=== PATIENT | female | born 1950 | race Caucasian/White ===

== ENCOUNTER 2019-06-30 07:04 | Day surgery (SDC) | payer MEDICARE ==
[2019-06-30] MEDS ORDERED: Midazolam 1 MG/ML 2 ML SDV ONE (07:27)
[2019-06-30] MEDS ORDERED: Propofol 200 MG/20 ML SDV ONE ×2 (07:27→08:00)
[2019-06-30] MEDS ORDERED: fentaNYL 100 MCG/2 ML SDV ONE (07:27)
[2019-06-30] MEDS ORDERED: Sodium Chloride 0.9% 1,000 ML IV SCH (07:45)
--- NOTE | 2019-06-30 10:15 | OR ---
DATE OF PROCEDURE: SURGEON: Juan Antonio Wagner MD PROCEDURES: 1. Esophagogastroduodenoscopy. 2. Colonoscopy. FINDINGS: 1. Hiatal hernia approximately 3 cm in size. 2. Inflammation of the GE junction with a slight thickening on lateral aspect (biopsied x6 using cold biopsy forceps and biopsied x4 in all other quadrants). 3. Polyp at 20 cm, completely removed using hot snare wire device. 4. Ascending colon polyp #1, approximately 1 cm, completely removed using hot snare wire device. 5. Ascending colon polyp #2, approximately 1 cm, completely removed using hot snare wire device. 6. Ascending colon polyp #3, approximately 8 mm, completely removed using hot snare wire device. 7. Ascending colon polyp #4, approximately 5 mm, completely removed using hot snare wire device. 8. Ascending colon polyp #5, approximately 1 cm, completely removed using hot snare wire device. 9. Descending colon polyp, approximately 1 cm, completely removed using hot snare wire device. 10.Sigmoid colon polyp, approximately 1.3 cm, completely removed using hot snare wire device. 11.Diverticulosis, mild, limited to sigmoid colon only. RISKS: Risks, benefits, alternatives, and limitations including, but not limited to infection, bleeding, and perforation were explained to the patient who wished to proceed. PROCEDURE IN DETAIL: The patient was placed in left lateral decubitus position. The EGD scope was introduced and advanced atraumatically into the second part of the duodenum. No evidence of duodenitis or ulceration. Within the stomach itself, there was no evidence of gastritis. The GE junction on one aspect showed a small more prominent area. This was biopsied as described above multiple times. The other quadrants were also biopsied. The patient did have a hiatal hernia approximately 3 cm in size. The remaining esophagus was normal. Digital rectal exam was performed without abnormality. The scope was introduced and advanced. The multiple polyps were identified throughout the procedure. Of note, the ascending colon polyps were numbered in a retrograde fashion. All of these polyps were identified and completely removed as described. Minimal bleeding was noted. The scope was eventually reached to the ileocecal valve. A photo was taken of this. Scope was brought back to the remainder of the colon. Diverticulosis would be described as mild, limited to the sigmoid colon without evidence of diverticulitis or bleeding. No abnormalities on retroflexion. The etiology of obviously the multiple polyps. Juan Antonio Wagner MD /[id number]
== END 2019-06-30 10:14 | disposition home or self-care (01) ==
LOC: JP.SDS 07:04
PROVIDERS: ATTEND Surgery
DX: C16.0 Malignant neoplasm of cardia (principal); D12.2 Benign neoplasm of ascending colon; D12.4 Benign neoplasm of descending colon; K44.9 Diaphragmatic hernia without obstruction or gangrene; K57.30 Diverticulosis of large intestine without perforation or abscess without bleeding; F17.200 Nicotine dependence, unspecified, uncomplicated
CPT/HCPCS: 43239; 45385; J2250; J2704; J3010; J7030; 88305; 88341; 88342

== ENCOUNTER 2019-09-09 20:49 | Emergency (ER) | payer MEDICARE, OTHER ==
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
[2019-09-09] MEDS ORDERED: Bupivacaine 0.5% 10 ML SDV INJECT ONE (21:51)
--- NOTE | 2019-09-11 10:57 | CR ---
FOOT RIGHT 3 views CLINICAL HISTORY:Injury FINDINGS:There is some soft tissue swelling of the second toe. There is no dislocation. No fracture line is seen. Impression: Soft tissue swelling second toe. No fracture seen , Toes Second Digit Lt T1 CLINICAL HISTORY: Dislocation FINDINGS: There is a dorsal dislocation of the second to the middle phalanx. There is a tiny ossific density in the medial periarticular region which is likely avulsion. IMPRESSION: Dislocation at the second PIP joint with probable tiny avulsion off the medial periarticular bone
--- NOTE | 2019-09-11 10:58 | CR ---
Tibia Fibula Rt CLINICAL HISTORY: 3 FINDINGS: Two views show no evidence of fracture or bone destruction. Impression: Negative
--- NOTE | 2019-09-11 10:59 | CR ---
Toes Second Digit Lt T1 CLINICAL HISTORY: Dislocation, reduction FINDINGS: There is been reduction of the second PIP dislocation. There is a tiny periarticular ossification felt to represent a small articular margin or avulsion fracture. IMPRESSION: Reduction of dislocation Small chip or avulsion fracture off the medial periarticular region
== END 2019-09-09 23:14 | disposition home or self-care (01) ==
LOC: JP.ED 20:49
DX: S93.115A Dislocation of interphalangeal joint of left lesser toe(s), initial encounter (principal); S90.31XA Contusion of right foot, initial encounter; S80.212A Abrasion, left knee, initial encounter; S80.211A Abrasion, right knee, initial encounter; S00.81XA Abrasion of other part of head, initial encounter; M19.90 Unspecified osteoarthritis, unspecified site; K21.9 Gastro-esophageal reflux disease without esophagitis; Z79.82 Long term (current) use of aspirin; Z79.02 Long term (current) use of antithrombotics/antiplatelets; Z79.899 Other long term (current) drug therapy; Z88.8 Allergy status to other drugs, medicaments and biological substances; V59.9XXA Occupant (driver) (passenger) of pick-up truck or van injured in unspecified traffic accident, initial encounter
CPT/HCPCS: 28515; 28660; 64450; 73590; 73630; 73660; 99282; 99283; J3490

== ENCOUNTER 2020-01-17 11:44 | Emergency (ER) | payer MEDICARE ==
[2020-01-17] MEDS ORDERED: Ketorolac 30 MG/ML SDV IVPUSH ONE (13:20)
[2020-01-17] MEDS ORDERED: fentaNYL 100 MCG/2 ML SDV IVPUSH ONE (13:20)
[2020-01-17] MEDS ORDERED: cefTRIAXone 1 GM in Sodium Chloride 0.9% 50 ML IV ONE ×2 (13:21→14:00)
--- NOTE | 2020-01-17 14:22 | EDM.PDOC ---
ED HPI GENERAL MEDICAL PROBLEM - General Chief Complaint: Flank Pain Stated Complaint: RIGHT SIDE PAIN Time Seen by Provider: 01/17/20 12:30 Source of Information: Reports: Patient, Family History Limitations: Reports: No Limitations - History of Present Illness INITIAL COMMENTS - FREE TEXT/NARRATIVE: 69-year-old female with right abdominal and right flank pain for the past sev eral days. She was diagnosed with a UTI and renal stones 1 month ago and a stent was placed. She was supposed to have a follow-up visit, but when she called for her appointment she was told the urologist was gone for 2 weeks. That made her upset so she switched clinics, and is now going to [facility] in [place] for stent removal next week. She has been on 3 courses of Cipro for UTI prevention, finished her antibiotic 3 days ago. She had a preop exam 2 days ago. This morning she is having more pain and nausea that she usually has although no fever or chills. She arrived to the emergency room fairly uncomfortable. This pain has been a recurring waxing and waning problem for her over the past 4 weeks. Onset: Gradual Duration: Day(s): (Worse the last 3 days) Location: Reports: Abdomen (Right abdomen) Associated Symptoms: Reports: Loss of Appetite, Malaise, Other (Nausea but no vomiting). Denies: Fever/Chills, Headaches, Shortness of Breath Right Flank Pain Score (Numeric/FACES): 8 - Related Data Allergies Allergy/AdvReac Type Severity Reaction Status Date / Time atorvastatin Allergy Rash Verified 09/09/19 21:09 cyclobenzaprine Allergy Other Verified 09/09/19 21:09 donepezil Allergy Other Verified 09/09/19 21:09 hydroxychloroquine Allergy Other Verified 09/09/19 21:09 [From Plaquenil] methotrexate AdvReac Leg Cramps Verified 09/09/19 21:09 Home Meds: Home Meds Aspirin [Halfprin] 81 mg PO DAILY 11/01/18 [History] Clopidogrel [Plavix] 75 mg PO DAILY 11/01/18 [History] Ezetimibe [Zetia] 10 mg PO DAILY 11/01/18 [History] Omeprazole 40 mg PO BID 11/01/18 [History] Sertraline [Zoloft] 150 mg PO DAILY 11/01/18 [History] predniSONE [Prednisone] 10 mg PO DAILY 11/01/18 [History] Oxybutynin Chloride 5 mg PO DAILY 06/21/19 [History] Sucralfate [Carafate] 1 gm PO QID 06/21/19 [History] Past Medical History HEENT History: Reports: Impaired Vision Cardiovascular History: Reports: Other (See Below) Other Cardiovascular History: peripheral artery disease Gastrointestinal History: Reports: GERD Genitourinary History: Reports: UTI, Recurrent [employer] History: Reports: Musculoskeletal History: Reports: Arthritis, Fibromyalgia, Other (See Below) Other Musculoskeletal History: osteopenia Neurological History: Reports: Other (See Below) Other Neuro History: dementia Oncologic (Cancer) History: Reports: Esophageal, Liver, Other (See Below) 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 - Infectious Disease History Infectious Disease History: Reports: Chicken Pox, Measles, Mumps - Past Surgical History HEENT Surgical History: Reports: Tonsillectomy Cardiovascular Surgical History: Reports: None GI Surgical History: Reports: None Neurological Surgical History: Reports: None Musculoskeletal Surgical History: Reports: None Oncologic Surgical History: Reports: Other (See Below) Other Oncologic Surgeries/Procedures: Liver biopsy Social & Family History - Tobacco Use Tobacco Use Status *Q: Current Every Day Tobacco User Years of Tobacco use: 50 Packs/Tins Daily: 0.5 - Caffeine Use Caffeine Use: Reports: Coffee, Soda, Tea - Recreational Drug Use Recreational Drug Use: No ED ROS GENERAL - Review of Systems Review Of Systems: See Below Constitutional: Reports: Malaise. Denies: Fever, Chills HEENT: Reports: No Symptoms Respiratory: Denies: Shortness of Breath Cardiovascular: Denies: Chest Pain GI/Abdominal: Reports: Abdominal Pain, Nausea. Denies: Vomiting Skin: Reports: Other (Dark or bloody urine for the days) Neurological: Denies: Headache Psychiatric: Reports: No Symptoms ED EXAM, RENAL/ - Physical Exam Exam: See Below Exam Limited By: No Limitations General Appearance: Alert, Mild Distress (Fairly uncomfortable on arrival) Eye Exam: Bilateral Eye: Normal Inspection (Well hydrated, no jaundice) Head: Atraumatic Respiratory/Chest: No Respiratory Distress, Lungs Clear Cardiovascular: Regular Rate, Rhythm. No: Tachycardia GI/Abdominal: Soft, Tender (Wrist with tenderness to palpation across the right abdomen, no focal rebound or guarding) Extremities: No: Pedal Edema Neurological: Alert, Oriented Psychiatric: Anxious Skin Exam: Warm, Dry Course - Vital Signs Last Recorded V/S: Last Vital Signs Temp 98.5 F 01/17/20 12:39 Pulse 78 01/17/20 12:39 Resp 16 01/17/20 12:39 BP 123/59 L 01/17/20 12:39 Pulse Ox 97 01/17/20 12:39 - Orders/Labs/Meds Orders: Active Orders 24 hr Category Date Time Status CULTURE URINE [RM] Stat Lab 01/17/20 13:35 Received Labs: Laboratory Tests 01/17/20 01/17/20 01/17/20 Range/Units 12:45 12:59 12:59 WBC 6.5 (4.5-11.0) K/uL RBC 3.96 (3.30-5.50) M/uL Hgb 11.5 L (12.0-15.0) g/dL Hct 36.3 (36.0-48.0) % MCV 92 (80-98) fL MCH 29 (27-31) pg MCHC 32 (32-36) % Plt Count 148 L (150-400) K/uL Neut % (Auto) 82 H (36-66) % Lymph % (Auto) 7 L (24-44) % Reynolds % (Auto) 11 H (2-6) % Eos % (Auto) 0 L (2-4) % Baso % (Auto) 0 (0-1) % Sodium 135 L (140-148) mmol/L Potassium 3.3 L (3.6-5.2) mmol/L Chloride 100 (100-108) mmol/L Carbon Dioxide 27 (21-32) mmol/L Anion Gap 11.3 (5.0-14.0) mmol/L BUN 14 (7-18) mg/dL Creatinine 0.7 (0.6-1.0) mg/dL Est Cr Clr Drug Dosing 67.34 mL/min Estimated GFR (MDRD) > 60 (>60) Glucose 93 (74-106) mg/dL Calcium 8.3 L (8.5-10.1) mg/dL Total Bilirubin 0.9 (0.2-1.0) mg/dL AST 43 H (15-37) U/L ALT 26 (12-78) U/L Alkaline Phosphatase 230 H (46-116) U/L Total Protein 6.2 L (6.4-8.2) g/dL Albumin 2.4 L (3.4-5.0) g/dL Globulin 3.8 H (2.3-3.5) g/dL Albumin/Globulin Ratio 0.6 L (1.2-2.2) Urine Color Red A (YELLOW) Urine Appearance Turbid A (CLEAR) Urine pH 5.5 (5.0-8.0) Ur Specific [place] >= 1.030 (1.008-1.030) Urine Protein >=300 H (NEGATIVE) mg/dL Urine Glucose (UA) Negative (NEGATIVE) mg/dL Urine Ketones Trace H (NEGATIVE) mg/dL Urine Occult Blood Large H (NEGATIVE) Urine Nitrite Positive H (NEGATIVE) Urine Bilirubin Moderate H (NEGATIVE) Urine Urobilinogen 1.0 (0.2-1.0) EU/dL Ur Leukocyte Esterase Large H (NEGATIVE) Urine RBC Packed H (0-5) Urine WBC 75-100 H (0-5) Ur Epithelial Cells Moderate Amorphous Sediment Rare Urine Bacteria Moderate Urine Mucus Not seen Meds: Medications Discontinued Medications Generic Name Dose Route Start Last Admin Trade Name Freq PRN Reason Stop Dose Admin Fentanyl 25 mcg 01/17/20 13:20 01/17/20 13:25 Sublimaze IVPUSH 01/17/20 13:21 25 mcg ONETIME ONE Administration Ceftriaxone Sodium 1 gm/ 50 mls @ 100 mls/hr 01/17/20 13:21 Sodium Chloride IV 01/17/20 13:50 ONETIME ONE Ceftriaxone Sodium 1 gm/ 50 mls @ 100 mls/hr 01/17/20 14:00 01/17/20 13:40 Sodium Chloride IV 01/17/20 14:29 100 mls/hr ONETIME ONE Administration Ketorolac Tromethamine 15 mg 01/17/20 13:20 01/17/20 13:25 Toradol IVPUSH 01/17/20 13:21 15 mg ONETIME ONE Administration - Re-Assessments/Exams Free Text/Narrative Re-Assessment/Exam: 01/17/20 14:20 An IV was noted and the patient was given 15 mg of IV Toradol and 25 mcg of IV fentanyl. A UA was obtained as well as a CBC CMP. The UA returned markedly abnormal, packed with bacteria, white and red cells and was nitrite positive. A culture was initiated and 1 g of Rocephin was hung. Within 1/2-hour of receiving medications, patient's pain was completely resolved. She will continue on Toradol 10 mg twice daily for the next 5 days, also given 10 [place] for extra pain control, and started on cephalexin 3 times a day for the next 7 days. A urine culture was ordered and will be available in the next 24 to 48 hours. Departure - Departure Time of Disposition: 14:40 Disposition: Home, Self-Care 01 Clinical Impression: UTI, Urinary tract infectious disease - Discharge Information Instructions: Urinary Tract Infection, Adult, [id number] Referrals: Tiffany Lu MD [Primary Care Provider] - Forms: ED Department Discharge Care Plan Goals: Take antibiotic 3 times a day until gone, starting with 1 dose tonight. Use ketorolac as directed for pain control, and add one stronger pain pill as prescribed if needed. Stay hydrated with fluids and recheck next week as scheduled. Return sooner if not improving despite medications. We will contact you if your urine culture shows you are not on an appropriate antibiotic. Sepsis Event Note (ED) - Evaluation Sepsis Screening Result: No Definite Risk - Focused Exam Vital Signs: Vital Signs Temp Pulse Resp BP Pulse Ox 01/17/20 12:39 98.5 F 78 16 123/59 L 97 01/17/20 12:24 98.5 F 78 16 123/59 L 97 - My Orders Last 24 Hours: My Active Orders 01/17/20 13:35 CULTURE URINE [RM] Stat - Assessment/Plan Last 24 Hours: My Active Orders 01/17/20 13:35 CULTURE URINE [RM] Stat
== END 2020-01-17 14:35 | disposition home or self-care (01) ==
LOC: JP.ED 11:44
DX: N39.0 Urinary tract infection, site not specified (principal); K21.9 Gastro-esophageal reflux disease without esophagitis; M19.90 Unspecified osteoarthritis, unspecified site; F17.210 Nicotine dependence, cigarettes, uncomplicated; Z88.8 Allergy status to other drugs, medicaments and biological substances; Z79.82 Long term (current) use of aspirin; Z79.02 Long term (current) use of antithrombotics/antiplatelets; Z79.899 Other long term (current) drug therapy
CPT/HCPCS: 36415; 80053; 81001; 85025; 87086; 96365; 96375; 99284-25; J0696; J1885; J3010; J7050

== ENCOUNTER 2020-01-30 11:07 | Emergency (ER) | payer MEDICARE ==
[2020-01-30] MEDS ORDERED: HYDROmorphone 1 MG/ML Syringe IM ONE (12:16)
--- NOTE | 2020-01-30 12:17 | EDM.PDOC ---
ED HPI GENERAL MEDICAL PROBLEM - General Chief Complaint: Abdominal Pain Stated Complaint: R SIDE PAIN Time Seen by Provider: 01/30/20 12:00 Source of Information: Reports: Patient History Limitations: Reports: No Limitations - History of Present Illness INITIAL COMMENTS - FREE TEXT/NARRATIVE: 69-year-old female with known metastatic intra-abdominal cancer, had an oncology appointment today but came in here because of right upper quadrant pain. She has been having persistent pain over the past several weeks. I did diagnose her with renal colic and UTI 3 weeks ago, since then she had her stent removed but is continuing to have pain. She just finished an antibiotic 2 days ago. Onset: Unknown/Unsure Duration: Week(s): (Pain has been waxing and waning for several weeks) Location: Reports: Abdomen, Other (Some radiation to the right shoulder) Quality: Reports: Ache, Sharp, Stabbing Improves with: Reports: Movement Associated Symptoms: Reports: Loss of Appetite. Denies: Confusion, Chest Pain, Other Right Abdomen Pain Score (Numeric/FACES): 10 - Related Data Allergies Allergy/AdvReac Type Severity Reaction Status Date / Time atorvastatin Allergy Rash Verified 01/30/20 11:56 cyclobenzaprine Allergy Other Verified 01/30/20 11:56 donepezil Allergy Other Verified 01/30/20 11:56 hydroxychloroquine Allergy Other Verified 01/30/20 11:56 [From Plaquenil] methotrexate AdvReac Leg Cramps Verified 01/30/20 11:56 Home Meds: Home Meds Clopidogrel [Plavix] 75 mg PO DAILY 11/01/18 [History] Omeprazole 40 mg PO BID 11/01/18 [History] Sertraline [Zoloft] 150 mg PO DAILY 11/01/18 [History] predniSONE [Prednisone] 10 mg PO DAILY 11/01/18 [History] Ondansetron [Ondansetron ODT] 4 mg PO ASDIRECTED 01/30/20 [History] Tamsulosin HCl 0.4 mg PO DAILY 01/30/20 [History] Past Medical History HEENT History: Reports: Impaired Vision Cardiovascular History: Reports: High Cholesterol, Other (See Below) Other Cardiovascular History: peripheral artery disease Respiratory History: Reports: COPD Gastrointestinal History: Reports: GERD Genitourinary History: Reports: Renal Calculus, UTI, Recurrent 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: Reports: Musculoskeletal History: Reports: Arthritis, Fibromyalgia, Other (See Below) Other Musculoskeletal History: osteopenia Neurological History: Reports: Other (See Below) Other Neuro History: dementia Psychiatric History: Reports: Depression Oncologic (Cancer) History: Reports: Esophageal, Liver, Other (See Below) 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 - Infectious Disease History Infectious Disease History: Reports: Chicken Pox, Measles, Mumps - Past Surgical History HEENT Surgical History: Reports: Tonsillectomy Cardiovascular Surgical History: Reports: None GI Surgical History: Reports: None Female Surgical History: Reports: Lithotripsy/ESWL, Ureteral Stent Neurological Surgical History: Reports: None Musculoskeletal Surgical History: Reports: None Oncologic Surgical History: Reports: Other (See Below) Other Oncologic Surgeries/Procedures: Liver biopsy Social & Family History - Tobacco Use Tobacco Use Status *Q: Current Every Day Tobacco User Years of Tobacco use: 50 Packs/Tins Daily: 0.5 Tobacco Use Comment: not smoked for past week - Caffeine Use Caffeine Use: Reports: Coffee, Soda, Tea - Recreational Drug Use Recreational Drug Use: No ED ROS GENERAL - Review of Systems Review Of Systems: See Below Constitutional: Reports: Malaise. Denies: Fever, Chills HEENT: Reports: No Symptoms Respiratory: Denies: Shortness of Breath Cardiovascular: Denies: Chest Pain GI/Abdominal: Reports: Abdominal Pain (Upper abdominal pain especially right upper quadrant radiating into right shoulder and around right flank) : Denies: Dysuria, Urgency Neurological: Reports: No Symptoms Psychiatric: Reports: No Symptoms ED EXAM, GI/ABD - Physical Exam Exam: See Below Exam Limited By: No Limitations General Appearance: Alert, Moderate Distress (Initially very uncomfortable) Eyes: Bilateral: Normal Appearance (No jaundice) Respiratory/Chest: No Respiratory Distress, Lungs Clear Cardiovascular: Regular Rate, Rhythm GI/Abdominal Exam: Soft, Tender (Fairly tender to palpation especially in the right upper quadrant, right lower quadrant and right flank area. Normal bowel sounds) Neurological: Alert, Oriented Psychiatric: Anxious Skin Exam: Warm, Dry Course - Vital Signs Last Recorded V/S: Last Vital Signs Temp 98.2 F 01/30/20 11:53 Pulse 65 01/30/20 15:44 Resp 16 01/30/20 15:44 BP 143/62 H 01/30/20 15:44 Pulse Ox 95 01/30/20 15:44 - Orders/Labs/Meds Orders: Active Orders 24 hr Category Date Time Status CULTURE URINE [RM] Stat Lab 01/30/20 15:52 Received Labs: Laboratory Tests 01/30/20 01/30/20 01/30/20 Range/Units 12:28 12:28 13:25 WBC 7.1 (4.5-11.0) K/uL RBC 3.93 (3.30-5.50) M/uL Hgb 11.3 L (12.0-15.0) g/dL Hct 35.7 L (36.0-48.0) % MCV 91 (80-98) fL MCH 29 (27-31) pg MCHC 32 (32-36) % Plt Count 195 (150-400) K/uL Neut % (Auto) 80 H (36-66) % Lymph % (Auto) 10 L (24-44) % [place]upe % (Auto) 9 H (2-6) % Eos % (Auto) 0 L (2-4) % Baso % (Auto) 0 (0-1) % Sodium 136 L (140-148) mmol/L Potassium 3.4 L (3.6-5.2) mmol/L Chloride 100 (100-108) mmol/L Carbon Dioxide 29 (21-32) mmol/L Anion Gap 10.4 (5.0-14.0) mmol/L BUN 10 (7-18) mg/dL Creatinine 0.7 (0.6-1.0) mg/dL Est Cr Clr Drug Dosing 67.34 mL/min Estimated GFR (MDRD) > 60 (>60) Glucose 113 H (74-106) mg/dL Calcium 8.3 L (8.5-10.1) mg/dL Total Bilirubin 0.6 (0.2-1.0) mg/dL AST 50 H (15-37) U/L ALT 33 (12-78) U/L Alkaline Phosphatase 323 H (46-116) U/L Total Protein 6.4 (6.4-8.2) g/dL Albumin 1.9 L (3.4-5.0) g/dL Globulin 4.5 H (2.3-3.5) g/dL Albumin/Globulin Ratio 0.4 L (1.2-2.2) Urine Color Yellow (YELLOW) Urine Appearance Slightly cloudy A (CLEAR) Urine pH 5.5 (5.0-8.0) Ur Specific Premium 1.025 (1.008-1.030) Urine Protein 30 H (NEGATIVE) mg/dL Urine Glucose (UA) Negative (NEGATIVE) mg/dL Urine Ketones Negative (NEGATIVE) mg/dL Urine Occult Blood Small H (NEGATIVE) Urine Nitrite Positive H (NEGATIVE) Urine Bilirubin Small H (NEGATIVE) Urine Urobilinogen 2.0 H (0.2-1.0) EU/dL Ur Leukocyte Esterase Trace H (NEGATIVE) Urine RBC 5-10 H (0-5) Urine WBC 10-20 H (0-5) Ur Epithelial Cells Few Amorphous Sediment Few Urine Bacteria Many Urine Mucus Many Meds: Medications Discontinued Medications Generic Name Dose Route Start Last Admin Trade Name Freq PRN Reason Stop Dose Admin Hydromorphone HCl 1 mg 01/30/20 12:16 01/30/20 12:31 Dilaudid IM 01/30/20 12:17 1 mg ONETIME ONE Administration - Re-Assessments/Exams Free Text/Narrative Re-Assessment/Exam: 01/30/20 17:01 Patient was given 1 mg of IM Dilaudid, CBC CMP were obtained as well as a UA by quick catheter. UA was nitrite positive with WBCs and bacteria so culture initiated. 01/30/20 17:01 White count was normal, alkaline phosphatase and AST were elevated. CT scan showed widespread metastatic disease in the liver and likely inflammatory changes to the right renal pelvis due to malignancy. This was discussed with the patient and with her oncologist. Plan is to reschedule her appointment for next week, she was placed on Macrobid twice daily for 7 days and given 15 tramadol to use sparingly for pain. Departure - Departure Time of Disposition: 16:40 Disposition: Home, Self-Care 01 Clinical Impression: Metastatic cancer to liver UTI (urinary tract infection) Qualifiers: Urinary tract infection type: site unspecified Hematuria presence: with hematuria Qualified Code(s): N39.0 - Urinary tract infection, site not specified - Discharge Information Instructions: Abdominal Pain, Adult, [id number] Referrals: Tiffany Lu MD [Primary Care Provider] - Forms: ED Department Discharge Care Plan Goals: Take antibiotic twice daily until gone, take 1 pain pill up to every 4-6 hours for pain and recheck with oncology next week as scheduled. They will call you tomorrow with a time. Sepsis Event Note (ED) - Evaluation Sepsis Screening Result: No Definite Risk - Focused Exam Vital Signs: Vital Signs Temp Pulse Resp BP Pulse Ox 01/30/20 15:44 65 16 143/62 H 95 01/30/20 13:15 68 16 132/57 L 97 01/30/20 11:53 98.2 F 68 20 137/48 L 97 - My Orders Last 24 Hours: My Active Orders 01/30/20 15:52 CULTURE URINE [RM] Stat - Assessment/Plan Last 24 Hours: My Active Orders 01/30/20 15:52 CULTURE URINE [RM] Stat
--- NOTE | 2020-01-30 15:12 | CT ---
Abdomen Pelvis wo Cont CLINICAL HISTORY: Right flank pain COMPARISON: None. TECHNIQUE: Axial tomographic images are obtained from the dome of the diaphragm to the pubic symphysis without IV contrast enhancement. No oral contrast was used. The dosage reduction and iterative reconstruction techniques employed. FINDINGS: The lung bases show some chronic interstitial changes and some groundglass opacities. There is a hiatal hernia The liver is diffusely heterogeneous with multiple varying sized large hypodense lesions strongly suggestive of metastasis. The gallbladder appears partially contracted. It may contain a large isodense gallstone. The spleen is enlarged. The pancreas shows no mass or inflammatory change. The adrenal glands appear normal bilaterally. The right renal sinus is ill-defined with displacement of the fat. There is soft tissue attenuation within the renal pelvis. There are 2 punctate calcifications in the midpole. Right ureter has a normal course and caliber. Left kidney shows no stones or hydronephrosis. Bladder has a normal contour. The aorta has atheromatous plaque without aneurysm. There is no suspicious retroperitoneal adenopathy. Small intestinal configuration is nonacute. There is colonic diverticulosis without evidence diverticulitis. There is dilatation of the endometrial cavity. There is a calcification in anterior uterine wall which may be related to fibroid. IMPRESSION: Soft tissue fullness involving the right renal pelvis is suspect for a urothelial neoplasm. Hepatomegaly with diffuse heterogeneously and multiple low-attenuation masses strongly suspect for metastatic disease Mild splenomegaly Diverticulosis without evidence of diverticulitis
== END 2020-01-30 16:20 | disposition home or self-care (01) ==
LOC: JP.ED 11:07
DX: C22.9 Malignant neoplasm of liver, not specified as primary or secondary (principal); N39.0 Urinary tract infection, site not specified; R31.9 Hematuria, unspecified; J44.9 Chronic obstructive pulmonary disease, unspecified; K21.9 Gastro-esophageal reflux disease without esophagitis; F32.9 Major depressive disorder, single episode, unspecified; F17.210 Nicotine dependence, cigarettes, uncomplicated; Z88.8 Allergy status to other drugs, medicaments and biological substances; Z79.02 Long term (current) use of antithrombotics/antiplatelets; Z79.899 Other long term (current) drug therapy
CPT/HCPCS: 36415; 74176; 80053; 81001; 85025; 87086; 87088; 87186; 96372; 99284; J1170

== ENCOUNTER 2020-02-14 15:42 | Inpatient (IN) | payer MEDICARE ==
[2020-02-14] MEDS ORDERED: Acetaminophen 325 MG Tab PO PRN (16:21)
[2020-02-14] MEDS ORDERED: Acetaminophen 650 MG Supp RECTAL PRN (16:22)
[2020-02-14] MEDS ORDERED: Ondansetron 4 MG/2 ML SDV IVPUSH PRN (16:22)
[2020-02-14] MEDS ORDERED: MVI, Adult with Vitamin K 10 ML, Chromium/Copper/Mang/Selen/Zn 1 ML in Lactated Ringers... IV ONE ×3 (17:00)
[2020-02-14] MEDS ORDERED: Sodium Chloride 0.9% 10 ML Syringe FLUSH PRN (17:59)
[2020-02-14] MEDS: Pantoprazole 40 MG Vial IV SCH (18:51)
[2020-02-14] MEDS: Dextrose 5%-Lactated Ringers 1,000 ML IV SCH (21:54)
[2020-02-15] MEDS: Dextrose 5%-Lactated Ringers 1,000 ML IV SCH ×2 (05:50→16:46)
[2020-02-15] MEDS ORDERED: Midazolam 1 MG/ML 2 ML SDV ONE (09:01)
[2020-02-15] MEDS ORDERED: fentaNYL 100 MCG/2 ML SDV ONE (09:01)
[2020-02-15] MEDS ORDERED: Propofol 200 MG/20 ML SDV ONE ×2 (09:01→10:55)
[2020-02-15] MEDS ORDERED: Lidocaine 1% with EPINEPHrine 1:100,000 50 ML MDV ONE (09:15)
[2020-02-15] MEDS ORDERED: Bupivacaine 0.5% 50 ML MDV ONE (09:15)
[2020-02-15] MEDS ORDERED: Bacitracin Oint 1 GM U/D Packet ONE (09:16)
[2020-02-15] MEDS ORDERED: ceFAZolin 2 GM in Premix Bag 1 BAG IV ONE (10:00)
[2020-02-15] MEDS ORDERED: Lactated Ringers 1,000 ML ONE (10:49)
[2020-02-15] MEDS ORDERED: fentaNYL 100 MCG/2 ML SDV IVPUSH ONE (11:22)
[2020-02-15] MEDS ORDERED: hydrOXYzine HCL 100 MG/2 ML SDV IM ONE (11:34)
[2020-02-15] MEDS: oxyCODONE 5 MG Tab PO PRN ×3 (13:17→22:07)
--- NOTE | 2020-02-15 13:24 | PN ---
DATE OF SERVICE: 02/15/2020 SUBJECTIVE: Zari Rosario is NPO. She is going to be having a gastrostomy tube placed with a port for chemotherapy. She is a referral from Corrie Swanson PA-C, Spanish Linguist/Oncologist Department. See copy of complete history and physical in chart by Corrie Swanson. Zari is a pleasant 69-year-old female who has stage IV esophageal cancer. She has not been able to eat or drink more than a few bites or sips at a time. Pain is in the midesophagus when trying to swallow and also she reports pain in her right upper quadrant. She has been taking tramadol and Vicodin for pain, and she is n.p.o. for a scheduled procedure today. REVIEW OF SYSTEMS: Chronic short of breath. Feels weak. Has had no fever, chills, headache, dizziness. Has had significant weight loss, 4 pounds, within the last week. BMI is 24.33. Remainder of review of systems negative for any pertinent positives and negatives. OBJECTIVE: GENERAL: Zari Rosario is a pleasant 69-year-old female. VITAL SIGNS: Height is 5 feet 4 inches, weight is 133 pounds and 8 ounces, BMI today 22. TPR 98.3, 66, 18, blood pressure 160/55. HEENT: Negative. NECK: Supple. HEART: Regular rate and rhythm. LUNGS: Revealed decreased breath sounds bilaterally with scattered wheezing. ABDOMEN: Tenderness is in the mid epigastric area and right mid quadrant. Hepatomegaly is noted. EXTREMITIES: Without peripheral edema. NEURO: Cranial nerves 2-12 intact. SKIN: Clear. No rash. PSYCHIATRIC: Mood and affect appropriate. ASSESSMENT: Esophageal cancer stage IV, weight loss, dysphagia, right renal stones, right upper quadrant abdominal pain secondary to liver metastasis, tobacco use, endometrial thickening, and depression. PLAN: 1. Orders to be written post procedure. 2. We will evaluate p.r.n. or in a.m. Sheila Kearney PA-C /[id number]
[2020-02-15] MEDS: ceFAZolin 2 GM in Premix Bag 1 BAG IV SCH ×2 (15:32→23:18)
[2020-02-15] MEDS: Nystatin Susp 100,000 Unit/ML 5 ML UD Cup PO SCH ×2 (15:33→22:04)
[2020-02-15] MEDS: HYDROmorphone 1 MG/ML Syringe IV PRN ×2 (16:41→23:21)
[2020-02-15] MEDS: Pantoprazole 40 MG Vial IV SCH (17:40)
[2020-02-16] MEDS: Dextrose 5%-Lactated Ringers 1,000 ML IV SCH ×2 (01:17→09:52)
[2020-02-16] MEDS: oxyCODONE 5 MG Tab PO PRN (05:20)
[2020-02-16] MEDS: Nystatin Susp 100,000 Unit/ML 5 ML UD Cup PO SCH ×4 (05:21→22:27)
[2020-02-16] MEDS: HYDROmorphone 1 MG/ML Syringe IV PRN (07:34)
[2020-02-16] MEDS: ceFAZolin 2 GM in Premix Bag 1 BAG IV SCH (07:35)
[2020-02-16] MEDS ORDERED: Clopidogrel 75 MG Tab PO SCH (09:00)
[2020-02-16] MEDS ORDERED: Sertraline 50 MG Tab PO SCH (09:00)
[2020-02-16] MEDS ORDERED: Loperamide 1 MG/7.5 ML 7.5 ML UD Cup FTUBE PRN (09:58)
[2020-02-16] MEDS: Tamsulosin 0.4 MG Cap.ER PO SCH (11:15)
[2020-02-16] MEDS: predniSONE 10 MG Tab PO SCH (11:16)
--- NOTE | 2020-02-16 13:13 | PN ---
DATE OF SERVICE: 02/16/2020 SUBJECTIVE: Zari is a pleasant 69-year-old female who is postoperative day 1. Vital signs have been stable. She has been afebrile, using her incentive spirometer, and up ambulating. Oral intake was a 1000 of full liquids. Gastrostomy tube put out 450 mL. Urine output, she has adequately voided. Pain has been controlled using IV Dilaudid one time and oral oxycodone. She would prefer not to have the oxycodone, it makes her too sleepy. Remainder of review of systems negative for any pertinent positives and negatives. OBJECTIVE: GENERAL: Zari Rosario is a pleasant 69-year-old female. VITAL SIGNS: Height is 5 feet 4 inches, weight is 133 pounds. BMI is 22. TPR is 98.4, 75, and 22. Blood pressure 138/56. HEENT: Negative. NECK: Supple. Dressing over the left subclavian area is clean and dry where the port is placed. HEART: Regular rate and rhythm. LUNGS: Reveal decreased breath sounds with rhonchi. ABDOMEN: Generalized tenderness. G-tube area looks clean and dry. There is no redness around it, and it is placed to dependent drainage. EXTREMITIES: Without peripheral edema. ASSESSMENT: 1. PEG tube placement and placement of port in left subclavian area. Date of procedure 02/15/2020. Surgeon: Yvan Boston MD. Postoperative diagnosis, malnutrition secondary to esophageal cancer. 2. Significant weight loss. 3. Limited peripheral access. 4. Esophageal cancer stage IV. 5. Right upper quadrant abdominal pain secondary to liver metastasis. PLAN: 1. Oxycodone discontinued. 2. Dilaudid 2 mg to 4 mg every 4 hours p.r.n. pain.; Plavix 75 mg p.o. scheduled, restarted; prednisone 10 mg p.o. daily scheduled, restarted; and Zoloft 150 mg p.o. daily scheduled, restarted. 3. Referral to discharge planning for home health care and home TPN nutrition. 4. Continue use of incentive spirometer and ambulation. 5. Indications for gastrostomy tube feedings: Malnutrition secondary to inability to eat due to stage IV esophageal cancer and right upper quadrant pain secondary to liver metastasis, dysphagia. Currently undergoing chemotherapy and radiation. BMI 22. Length of need for TPN 12 months. 6. Prescription of Jevity 1.5. a. This will be started today at 20 mL per hour. b. Gastric residual volume after 4 hours, hold if it is greater than 250 mL. c. If the volume is less than 250 mL, increase the rate by 20 mL. d. Repeat 2 and 3 until the patient reaches the goal of 42 mL per hour. The patient will be discharged at 42 mL per hour and to flush the feeding tube with 50 mL of free water every 4 hours when IV goes to TKO. 7. A CBC with differential, chemistry profile, iron, TIBC, magnesium, and phosphorus will need to be obtained weekly. If diarrhea develops, give Imodium liquid 2 mg after each loose stool for maximum of 8 mL in 24 hours. 8. Plan discharge to home with home health care and home gastrostomy tube feedings on Wednesday02/19/2020. Sheila Kearney PA-C /[id number]
[2020-02-16] MEDS: Pantoprazole 40 MG Tab.CR PO SCH (16:54)
[2020-02-16] MEDS: HYDROmorphone 2 MG Tab PO PRN ×2 (18:23→22:33)
[2020-02-17] MEDS: HYDROmorphone 2 MG Tab PO PRN ×4 (03:39→22:16)
[2020-02-17] MEDS: Nystatin Susp 100,000 Unit/ML 5 ML UD Cup PO SCH ×4 (05:31→22:18)
[2020-02-17] MEDS: Pantoprazole 40 MG Tab.CR PO SCH (07:21)
[2020-02-17] MEDS ORDERED: Acetaminophen 325 MG Tab GTUBE PRN (08:00)
[2020-02-17] MEDS ORDERED: Sertraline 50 MG Tab GTUBE SCH (08:01)
[2020-02-17] MEDS ORDERED: Clopidogrel 75 MG Tab GTUBE SCH (08:11)
[2020-02-17] MEDS: Ondansetron 4 MG Tab.DIS PO PRN (08:41)
[2020-02-17] MEDS: Potassium Phosphates 3 mMole/ML 15 ML SDV SCH ×3 (10:39→17:05)
[2020-02-17] MEDS: predniSONE 10 MG Tab PO SCH (11:35)
[2020-02-17] MEDS: Tamsulosin 0.4 MG Cap.ER PO SCH (11:35)
[2020-02-17] MEDS: Acetaminophen 325 MG Tab PO PRN (17:02)
[2020-02-17] MEDS: Pantoprazole 40 MG Delayed-Release Granules 1 Packet GTUBE SCH (17:05)
[2020-02-18] MEDS: Loperamide 1 MG/7.5 ML 7.5 ML UD Cup GTUBE PRN (05:08)
[2020-02-18] MEDS: Ondansetron 4 MG Tab.DIS PO PRN (06:07)
[2020-02-18] MEDS: Nystatin Susp 100,000 Unit/ML 5 ML UD Cup PO SCH ×4 (06:07→22:43)
[2020-02-18] MEDS: Pantoprazole 40 MG Delayed-Release Granules 1 Packet GTUBE SCH ×2 (07:35→16:24)
[2020-02-18] MEDS: HYDROmorphone 2 MG Tab PO PRN ×2 (08:31→20:10)
[2020-02-18] MEDS: Acetaminophen 325 MG Tab PO PRN (08:32)
[2020-02-18] MEDS: Sertraline 50 MG Tab PO SCH (09:24)
[2020-02-18] MEDS: Tamsulosin 0.4 MG Cap.ER PO SCH (09:25)
[2020-02-18] MEDS: Clopidogrel 75 MG Tab PO SCH (09:25)
[2020-02-18] MEDS: predniSONE 10 MG Tab PO SCH (09:25)
--- NOTE | 2020-02-18 11:07 | PN ---
DATE OF SERVICE: 02/17/2020 The patient has been afebrile with stable vital signs, still complaining of some dysphagia we will try getting her omeprazole through the G-tube. Her phosphate is somewhat low, we will recheck some labs in the morning, but add some K-Phos via the G-tube today in anticipation of some degree of refeeding syndrome. The potassium was marginally low on admission as well. Otherwise, we will begin the nighttime tube feeding regimen tonight, and otherwise, continue with the lower rate during the day today. It would be anticipated that tube feedings would be needed for at least 90 days given her ongoing treatment for esophageal carcinoma. Yvan Boston MD /[id number]
[2020-02-18] MEDS ORDERED: Potassium Phosphates 3 mMole/ML 15 ML SDV ONE ×2 (12:00→17:00)
[2020-02-18] MEDS: Magnesium Oxide 400 MG Tab GTUBE SCH (13:49)
[2020-02-19] MEDS: Loperamide 1 MG/7.5 ML 7.5 ML UD Cup GTUBE PRN ×2 (00:10→02:10)
[2020-02-19] MEDS: HYDROmorphone 2 MG Tab PO PRN ×3 (00:18→08:20)
[2020-02-19] MEDS: Ondansetron 4 MG Tab.DIS PO PRN ×2 (00:18→10:36)
[2020-02-19] MEDS: Nystatin Susp 100,000 Unit/ML 5 ML UD Cup PO SCH ×3 (06:23→09:54)
[2020-02-19] MEDS: Pantoprazole 40 MG Delayed-Release Granules 1 Packet GTUBE SCH (07:30)
[2020-02-19] MEDS: predniSONE 10 MG Tab PO SCH (07:36)
[2020-02-19] MEDS: Magnesium Oxide 400 MG Tab GTUBE SCH (09:43)
[2020-02-19] MEDS: Clopidogrel 75 MG Tab PO SCH (09:43)
[2020-02-19] MEDS: Tamsulosin 0.4 MG Cap.ER PO SCH (09:43)
[2020-02-19] MEDS: Sertraline 50 MG Tab PO SCH (09:44)
--- NOTE | 2020-02-19 12:05 | DISCH ---
ADMISSION DIAGNOSES: 1. Esophageal cancer, stage IV. 2. Weight loss. 3. Dysphagia. 4. Right renal stones. 5. Right upper quadrant abdominal pain secondary to liver metastasis. 6. Tobacco use. 7. Endometrial thickening. 8. Depression. DISCHARGE DIAGNOSES: PEG tube placement and placement of port in left subclavian area. Date of procedure, 02/15/2020. Surgeon: Yvan Boston MD. POSTOPERATIVE DIAGNOSIS: Malnutrition secondary to esophageal cancer. HISTORY: Zari Rosario is a pleasant 69-year-old female with the above diagnoses. After preoperative evaluation and discussion of possible risks and possible complications, she wished to proceed with surgical procedure. HOSPITAL COURSE: Zari had her operative procedure on 02/15/2020. On 02/16/2020, she started the gastrostomy tube feedings of Jevity 1.5. She was gradually increased and then changed to 12-hour feeding. She tolerated these well with the exception of some diarrhea, which is being treated with Imodium. She plans to be discharged to home without any complications. She has been afebrile. Hemoglobin this morning was 9.7, potassium 4.2, sodium 136, albumin 1.6, and protein is 5.7. PHYSICAL EXAMINATION: GENERAL: Zari Rosario is a pleasant 69-year-old female. VITAL SIGNS: Height 5 feet 4 inches, weight is 146 pounds. TPR is 98.6, 79, 17, blood pressure 129/52. HEENT: Negative. NECK: Supple. HEART: Regular rate and rhythm. LUNGS: Clear. SKIN: The left subclavian incision where the port is placed, Steri-Strips looks good, and there is no redness around the gastrostomy tube. EXTREMITIES: Without peripheral edema. DISPOSITION: Discharged to home with home health care. CONDITION: Stable and improving. HOME MEDICATIONS: 1. Loperamide, antidiarrheal. Imodium 1 mg p.o. q.6 hours p.r.n. 30 days. 2. Dilaudid 2 mg p.o. q.4 hours p.r.n. pain, #42. 3. Magnesium oxide through the G-tube daily, #100. 4. Nystatin, Mycostatin 5 mL p.o. q.i.d. for 30 days for fungal infection in the esophagus. 5. Zofran ODT 4 mg every 4 hours p.r.n. nausea, #30. 6. Plavix 75 mg p.o. daily. 7. Prednisone 10 mg p.o. daily. 8. Sertraline 150 mg p.o. daily. 9. Tamsulosin, Flomax 0.4 mg p.o. daily. 10.Acetaminophen 650 mg every 4 hours p.r.n. pain. 11.Omeprazole 40 mg p.o. b.i.d. FOLLOWUP APPOINTMENT: With Yvan Boston MD, on 02/18/2020 at 10 a.m. at . DIET: Usual diet as tolerated. Drink 8 to 10 glasses of water a day. ACTIVITY: As tolerated. No lifting greater than 10 pounds. Driving: Do not drive today or while on narcotic pain medication. Shower/bathing: May shower. Notify provider if any fever, increased pain, swelling, redness, drainage, nausea, or vomiting. Keep operative site clean and dry. SPECIAL INSTRUCTION: Use incentive spirometer 10 times every hour while awake. Take antidiarrhea medicine before you start the G-tube feedings and may repeat in the middle of the night if needed. Tube feeding should run 12 hours daily, Jevity 1.5 at 42 mL per hour. To flush feeding tube with 50 mL of free water every 4 hours. CBC with differential, chemistry profile, iron, total TIBC, magnesium and phos weekly. Tube feedings expected for 90 days or more. /[id number]
--- NOTE | 2020-02-19 12:47 | PN ---
DATE OF SERVICE: 02/18/2020 The patient tolerated the tube feedings which did have some diarrhea this morning, but that I think will be something that should be manageable. We will have her off the tube feedings during the day today and then start the nighttime feed measurement tonight, and she will be likely ready for discharge home tomorrow. Her phosphate is marginally low, and in anticipation of this repeating, we will give her some additional K-Phos per the G-tube today as well as some magnesium to supplement the slightly low magnesium. Yvan Boston MD /[id number]
--- NOTE | 2020-02-25 10:14 | OR ---
DATE OF PROCEDURE: 02/15/2020 SURGEON: Yavn Boston MD PREOPERATIVE DIAGNOSES: 1. Advanced esophageal carcinoma with dysphasia precluding adequate oral intake. 2. Indication for central venous access. POSTOPERATIVE DIAGNOSES: 1. Advanced esophageal carcinoma with dysphasia precluding adequate oral intake. 2. Indication for central venous access. OPERATIVE PROCEDURES: 1. Percutaneous endoscopic gastrostomy tube placement (46316). 2. Placement of Bard PowerPort via left subclavian vein approach (71439). ANESTHESIA: Local plus IV sedation. INDICATIONS FOR PROCEDURE: This 69-year-old female presenting with esophageal adenocarcinoma. She has quite a bit in the way of dysphagia and has not been able to maintain adequate oral intake and referred for enteral feeding tube placement. Given her liver metastasis, she would likely at any point be a candidate for esophagectomy, so stomach would be the preferred organ for placement of the feeding tube. Otherwise, the patient is going to be receiving ongoing chemotherapy and central venous access was requested per Medical Oncology as well. Potential risks of the procedures including bleeding, infection, injury to the underlying viscera, problems with port becoming infected or occluded were all gone over and the patient wishes to proceed. DETAILS OF PROCEDURE: The patient was taken to the operating room, placed in a supine position. After IV sedation was administered, the upper GI endoscope was then passed orally through the length of the esophagus. The area of the tumor around the esophagogastric junction was identified but easily traversed. The abdomen at that point had been prepped and draped and light was then shown on the anterior abdominal wall. Skin overlying this was then anesthetized with 0.25% lidocaine and the stomach then entered with a 14-Andorran Intracath type needle, and through this, a guidewire placed into the stomach. This allowed pulling the guidewire back out through the mouth as the gastroscope was retrieved. 1 cm incision was then made at the skin puncture site and the gastrostomy tube insertion apparatus was affixed to the wire, pulled out through the mouth, and taken out through the abdominal wall, and was then secured with some 2-0 nylon stitch. Endoscopic examination showed correct placement of the gastrostomy tube. The patient was noted to have large hiatal hernia with the tube, however, being placed somewhat below that in the left subcostal region. The upper chest wall was then prepped and draped and the left subclavian area then anesthetized with 1% lidocaine mixed with Marcaine. Left subclavian vein was cannulated. Guidewire passed, and from there manipulated into the superior vena cava. A transverse incision over the area of the wire placement was then made and carried down through the skin and subcutaneous tissue and through the pectoralis major fascia. In that plane, the port pocket was bluntly created and the Bard port was then placed into the pocket and the catheter cut such that the tip would lie in the area of the superior vena cava and right atrial junction, and deployed there with introducer and peel-away catheter. The port site was then closed with 2 layers of 3-0 Vicryl stitch deep and a 4-0 Vicryl subcuticular stitch. Port was then aspirated with good in and outflow noted and then flushed with heparinized saline once again. The patient was taken to the recovery room in satisfactory condition. One additional finding on the endoscopy was that of quite intense fungal overgrowth within the esophagus, and the patient will be initiated on some Mycostatin swish and swallow. Yvan Boston MD /[id number]
== END 2020-02-19 11:30 | disposition home health service (06) | DRG 375 ==
LOC: JP.ICU 17:28 → JP.MS 02-15 16:29
PROVIDERS: ADMIT Surgery; ATTEND Surgery
PROC: 02HV33Z Insertion of Infusion Device into Superior Vena Cava, Percutaneous Approach (ICD-10-PCS; principal; 2020-02-15)
PROC: 0DH63UZ Insertion of Feeding Device into Stomach, Percutaneous Approach (ICD-10-PCS; principal; 2020-02-15)
DX: C15.9 Malignant neoplasm of esophagus, unspecified (principal); C78.7 Secondary malignant neoplasm of liver and intrahepatic bile duct; E44.0 Moderate protein-calorie malnutrition; F32.9 Major depressive disorder, single episode, unspecified; F17.210 Nicotine dependence, cigarettes, uncomplicated; N20.0 Calculus of kidney; Z87.442 Personal history of urinary calculi; R13.10 Dysphagia, unspecified; Z88.8 Allergy status to other drugs, medicaments and biological substances; Z68.24 Body mass index [BMI] 24.0-24.9, adult; Z20.828 Contact with and (suspected) exposure to other viral communicable diseases; K21.9 Gastro-esophageal reflux disease without esophagitis
CPT/HCPCS: 36415; 77001; 80053; 83550; 83735; 84100; 85025; 85027; A9270-GY; C1788; C9113; J0690; J1170; J1642; J2250; J2405; J2704; J3010; J3410; J3490; J7120; J7121; J7512; U0002

== ENCOUNTER 2020-02-21 14:17 | Emergency (ER) | payer MEDICARE ==
[2020-02-21] MEDS ORDERED: Sodium Chloride 0.9% 10 ML Syringe FLUSH PRN (14:33)
[2020-02-21] MEDS ORDERED: HYDROmorphone 0.5 MG/0.5 ML Syringe IVPUSH ONE (14:38)
--- NOTE | 2020-02-21 14:44 | EDM.PDOC ---
ED HPI GENERAL MEDICAL PROBLEM - General Chief Complaint: General Stated Complaint: [facility] Time Seen by Provider: 02/21/20 14:25 Source of Information: Reports: Patient, Old Records, RN History Limitations: Reports: No Limitations - History of Present Illness INITIAL COMMENTS - FREE TEXT/NARRATIVE: 69 yo female with known metastatic esophageal CA was discharged from here 2 d ago after getting a port and a feeding tube. Was too weak to stand at that time, but wanted to go home. Still very weak. Was sent to ER for low oxygen levels, which turned out to be a false reading. Says her tube feedings just showed up today and has had very little in since going home on Wednesday. Onset: Gradual Duration: Chronic, Getting Worse Location: Reports: Generalized Quality: Reports: Other (no new pain, has some chronic abdominal pain) Severity: Moderate Improves with: Reports: Medication Worsens with: Reports: Other (coughing or pressing on abdomen) Context: Reports: Other (metastatic dz) Associated Symptoms: Reports: Loss of Appetite, Malaise, Weakness. 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) (none new) Abdominal Pain Score (Numeric/FACES): 8 - Related Data Allergies Allergy/AdvReac Type Severity Reaction Status Date / Time atorvastatin Allergy Rash Verified 01/30/20 11:56 cyclobenzaprine Allergy Other Verified 01/30/20 11:56 donepezil Allergy Other Verified 01/30/20 11:56 hydroxychloroquine Allergy Other Verified 01/30/20 11:56 [From Plaquenil] methotrexate AdvReac Leg Cramps Verified 01/30/20 11:56 Home Meds: Home Meds Clopidogrel [Plavix] 75 mg PO DAILY 11/01/18 [History] Omeprazole 40 mg PO BID 11/01/18 [History] Sertraline [Zoloft] 150 mg PO DAILY 11/01/18 [History] predniSONE [Prednisone] 10 mg PO DAILY 11/01/18 [History] Ondansetron [Ondansetron ODT] 4 mg PO ASDIRECTED PRN 01/30/20 [History] Tamsulosin HCl 0.4 mg PO DAILY 01/30/20 [History] Acetaminophen [Tylenol] 650 mg PO Q4H PRN tablet 02/19/20 [Rx] HYDROmorphone [Dilaudid] 2 mg PO Q4H PRN #42 tablet 02/19/20 [Rx] Loperamide HCl [Anti-Diarrheal] 1 mg PO Q6H PRN 30 Days liquid 02/19/20 [Rx] Magnesium Oxide 400 mg GTUBE DAILY #100 tablet 02/19/20 [Rx] Nystatin [Mycostatin] 5 ml PO QID 30 Days cup 02/19/20 [Rx] Ondansetron [Zofran ODT] 4 mg PO Q4H PRN #30 tab.dis 02/19/20 [Rx] Past Medical History HEENT History: Reports: Impaired Vision Cardiovascular History: Reports: High Cholesterol, Other (See Below) Other Cardiovascular History: peripheral artery disease Respiratory History: Reports: COPD Gastrointestinal History: Reports: GERD Genitourinary History: Reports: Renal Calculus, UTI, Recurrent 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: Musculoskeletal History: Reports: Arthritis, Fibromyalgia, Other (See Below) Other Musculoskeletal History: osteopenia Neurological History: Reports: Other (See Below) Other Neuro History: dementia Psychiatric History: Reports: Depression Oncologic (Cancer) History: Reports: Esophageal, Liver, Other (See Below) 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 - Infectious Disease History Infectious Disease History: Reports: Chicken Pox, Measles, Mumps - Past Surgical History HEENT Surgical History: Reports: Tonsillectomy Cardiovascular Surgical History: Reports: None GI Surgical History: Reports: None Female Surgical History: Reports: Lithotripsy/ESWL, Ureteral Stent Neurological Surgical History: Reports: None Musculoskeletal Surgical History: Reports: None Oncologic Surgical History: Reports: Other (See Below) Other Oncologic Surgeries/Procedures: Liver biopsy Social & Family History - Tobacco Use Tobacco Use Status *Q: Former Tobacco User Used Tobacco, but Quit: Yes Month/Year Tobacco Last Used: 2019 - Caffeine Use Caffeine Use: Reports: None - Recreational Drug Use Recreational Drug Use: No ED ROS GENERAL - Review of Systems Review Of Systems: See Below Constitutional: Reports: No Symptoms HEENT: Reports: No Symptoms Respiratory: Reports: No Symptoms Cardiovascular: Reports: No Symptoms GI/Abdominal: Reports: Abdominal Pain (not acute), Decreased Appetite. Denies: Black Stool, Constipation, Diarrhea, Distension, Hematemesis, Vomiting : Reports: No Symptoms Musculoskeletal: Reports: No Symptoms Skin: Reports: No Symptoms Neurological: Reports: No Symptoms Psychiatric: Reports: No Symptoms ED EXAM, GENERAL - Physical Exam Exam: See Below Exam Limited By: No Limitations General Appearance: Alert, WD/WN, No Apparent Distress Eye Exam: Bilateral Eye: Normal Inspection Ears: Normal External Exam, Normal Canal, Hearing Grossly Normal Ear Exam: Bilateral Ear: Auricle Normal, Canal Normal Nose: Normal Inspection, No Blood Throat/Mouth: Normal Inspection, Normal Lips, Normal Oropharynx, Normal Voice, No Airway Compromise Head: Atraumatic, Normocephalic Neck: Normal Inspection, Non-Tender Respiratory/Chest: No Respiratory Distress, Lungs Clear, Normal Breath Sounds, No Accessory Muscle Use Cardiovascular: Regular Rate, Rhythm, No Edema GI/Abdominal: Normal Bowel Sounds, No Distention, Tender (RUQ mild), Other (G- tube present). No: Distended Back Exam: Normal Inspection. No: CVA Tenderness (R), CVA Tenderness (L) Extremities: Normal Inspection, Normal Range of Motion, Non-Tender, No Pedal Edema Neurological: Alert, Oriented, CN II-XII Intact, Normal Cognition, No Motor/Sensory Deficits Psychiatric: Normal Affect, Normal Mood Skin Exam: Warm, Dry, Intact, Normal Color, No Rash Course - Vital Signs Last Recorded V/S: Last Vital Signs Temp 37 C 02/21/20 14:20 Pulse 66 02/21/20 15:52 Resp 16 02/21/20 14:20 BP 131/54 L 02/21/20 15:52 Pulse Ox 92 L 02/21/20 15:11 - Orders/Labs/Meds Orders: Active Orders 24 hr Category Date Time Status Tube Feeding [Enteral Feedings] [RC] Click to Edit Diet 02/21/20 15:26 Active UA W/MICROSCOPIC [URIN] Stat Lab 02/21/20 14:32 Ordered NS + KCl 20mEq/L [Normal Saline with 20 mEq KCl] 1,000 Med 02/21/20 15:45 Active ml IV ASDIRECTED Sodium Chloride 0.9% [Saline Flush] Med 02/21/20 14:33 Active 10 ml FLUSH ASDIRECTED PRN Saline Lock Insert [OM.PC] Routine Oth 02/21/20 14:33 Ordered Medication Orders Potassium Chloride/Sodium Chloride (Normal Saline With 20 Meq Kcl) 1,000 mls @ 500 mls/hr IV ASDIRECTED JELENA Last Admin: 02/21/20 15:36 Dose: 500 mls/hr Documented by: [id number] Sodium Chloride (Saline Flush) 10 ml FLUSH ASDIRECTED PRN PRN Reason: Keep Vein Open Last Admin: 02/21/20 14:51 Dose: 10 ml Documented by: [id number] Labs: Laboratory Tests 02/21/20 02/21/20 02/21/20 Range/Units 15:02 15:02 15:31 WBC 7.1 (4.5-11.0) K/uL RBC 3.40 (3.30-5.50) M/uL Hgb 9.1 L (12.0-15.0) g/dL Hct 29.9 L (36.0-48.0) % MCV 88 (80-98) fL MCH 27 (27-31) pg MCHC 30 L (32-36) % Plt Count 209 (150-400) K/uL Sodium 138 L (140-148) mmol/L Potassium 3.7 (3.6-5.2) mmol/L Chloride 101 (100-108) mmol/L Carbon Dioxide 24 (21-32) mmol/L Anion Gap 16.7 H (5.0-14.0) mmol/L BUN 15 D (7-18) mg/dL Creatinine 0.7 (0.6-1.0) mg/dL Est Cr Clr Drug Dosing 67.34 mL/min Estimated GFR (MDRD) > 60 (>60) Glucose 95 (74-106) mg/dL Calcium 7.6 L (8.5-10.1) mg/dL Magnesium 2.1 (1.8-2.4) mg/dL Total Bilirubin 0.7 D (0.2-1.0) mg/dL AST 103 H D (15-37) U/L ALT 42 (12-78) U/L Alkaline Phosphatase 374 H (46-116) U/L Troponin I < 0.017 (0.000-0.056) ng/mL Total Protein 5.7 L (6.4-8.2) g/dL Albumin 1.6 L (3.4-5.0) g/dL Globulin 4.1 H (2.3-3.5) g/dL Albumin/Globulin Ratio 0.4 L (1.2-2.2) Meds: Medications Generic Name Dose Route Start Last Admin Trade Name Freq PRN Reason Stop Dose Admin Potassium Chloride/Sodium Chloride 1,000 mls @ 500 mls/hr 02/21/20 15:45 02/21/20 15:36 Normal Saline With 20 Meq Kcl IV 500 mls/hr ASDIRECTED JELENA Administration Sodium Chloride 10 ml 02/21/20 14:33 02/21/20 14:51 Saline Flush FLUSH 10 ml ASDIRECTED PRN Administration Keep Vein Open Discontinued Medications Generic Name Dose Route Start Last Admin Trade Name Freq PRN Reason Stop Dose Admin Hydromorphone HCl 0.5 mg 02/21/20 14:38 02/21/20 14:48 Dilaudid IVPUSH 02/21/20 14:39 0.5 mg ONETIME ONE Administration - Re-Assessments/Exams Free Text/Narrative Re-Assessment/Exam: 02/21/20 17:05 Feeling better here in the ER after some IV fluids and Jevity per G-tube, willing/able to go home. Departure - Departure Time of Disposition: 18:00 Disposition: Home, Self-Care 01 Condition: Fair Clinical Impression: Weakness Esophageal cancer Qualifiers: Malignant neoplasm of esophagus location: unspecified location Qualified Code(s): C15.9 - Malignant neoplasm of esophagus, unspecified - Discharge Information *PRESCRIPTION DRUG MONITORING PROGRAM REVIEWED*: Not Applicable *COPY OF PRESCRIPTION DRUG MONITORING REPORT IN PATIENT ESCOBAR: Not Applicable Referrals: PCP,None [Primary Care Provider] - Forms: ED Department Discharge Additional Instructions: Give 60 ml of the Jevity every 30 minutes while awake per G-tube until you are able to start the continuous night time feedings. Continue your current medications. Return as needed. Sepsis Event Note (ED) - Evaluation Sepsis Screening Result: No Definite Risk - Focused Exam Vital Signs: Vital Signs Temp Pulse Resp BP Pulse Ox 02/21/20 15:52 66 131/54 L 02/21/20 15:11 66 142/52 H 92 L 02/21/20 14:20 37 C 70 16 128/56 L 49 L - My Orders Last 24 Hours: My Active Orders 02/21/20 14:32 UA W/MICROSCOPIC [URIN] Stat 02/21/20 14:33 Sodium Chloride 0.9% [Saline Flush] 10 ml FLUSH ASDIRECTED PRN Saline Lock Insert [OM.PC] Routine 02/21/20 15:26 Tube Feeding [Enteral Feedings] [RC] Click to Edit 02/21/20 15:45 NS + KCl 20mEq/L [Normal Saline with 20 mEq KCl] 1,000 ml IV ASDIRECTED - Assessment/Plan Last 24 Hours: My Active Orders 02/21/20 14:32 UA W/MICROSCOPIC [URIN] Stat 02/21/20 14:33 Sodium Chloride 0.9% [Saline Flush] 10 ml FLUSH ASDIRECTED PRN Saline Lock Insert [OM.PC] Routine 02/21/20 15:26 Tube Feeding [Enteral Feedings] [RC] Click to Edit 02/21/20 15:45 NS + KCl 20mEq/L [Normal Saline with 20 mEq KCl] 1,000 ml IV ASDIRECTED
[2020-02-21] MEDS ORDERED: NS + KCl 20mEq/L 1,000 ML IV SCH (15:45)
[2020-02-21] MEDS ORDERED: Metoclopramide 10 MG/2 ML SDV IVPUSH ONE (17:48)
== END 2020-02-21 18:19 | disposition home or self-care (01) ==
LOC: JP.ED 14:17
DX: C15.9 Malignant neoplasm of esophagus, unspecified (principal); Z93.1 Gastrostomy status; J44.9 Chronic obstructive pulmonary disease, unspecified; K21.9 Gastro-esophageal reflux disease without esophagitis; F32.9 Major depressive disorder, single episode, unspecified; Z90.49 Acquired absence of other specified parts of digestive tract; Z87.891 Personal history of nicotine dependence; Z88.8 Allergy status to other drugs, medicaments and biological substances; Z79.899 Other long term (current) drug therapy; Z79.02 Long term (current) use of antithrombotics/antiplatelets
CPT/HCPCS: 36415; 80053; 83735; 84484; 85027; 96365; 96366; 96375; 99284; 99285; J1170; J2765; J3480

== ENCOUNTER 2020-03-04 14:05 | Emergency (ER) | payer MEDICARE ==
--- NOTE | 2020-03-04 15:36 | EDM.PDOC ---
ED HPI GENERAL MEDICAL PROBLEM - General Chief Complaint: Respiratory Problem Stated Complaint: OXGEN LEVELS ARE LOW PRE [facility] NURSE Time Seen by Provider: 03/04/20 14:45 Source of Information: Reports: Patient History Limitations: Reports: No Limitations - History of Present Illness INITIAL COMMENTS - FREE TEXT/NARRATIVE: 69-year-old female with esophageal cancer, has been receiving radiation treatment but finished 1 month ago and is now getting chemotherapy. She was having trouble clearing her airway at home and her O2 sats were dropping so they brought her in to be seen. She is coughing up some very pasty thick sometimes bloody material, she was somewhat dusky on arrival but now she is looking much better. No treatment had been given and she had calmed down, O2 sats 97 to 99% on room air in no respiratory distress whatsoever. Onset: Unknown/Unsure Associated Symptoms: Reports: Cough, Shortness of Breath, Weakness Abdomen Pain Score (Numeric/FACES): 7 - Related Data Allergies Allergy/AdvReac Type Severity Reaction Status Date / Time atorvastatin Allergy Rash Verified 03/04/20 14:29 cyclobenzaprine Allergy Other Verified 03/04/20 14:29 donepezil Allergy Other Verified 03/04/20 14:29 hydroxychloroquine Allergy Other Verified 03/04/20 14:29 [From Plaquenil] methotrexate AdvReac Leg Cramps Verified 03/04/20 14:29 Home Meds: Home Meds Clopidogrel [Plavix] 75 mg PO DAILY 11/01/18 [History] Omeprazole 40 mg PO BID 11/01/18 [History] Sertraline [Zoloft] 150 mg PO DAILY 11/01/18 [History] predniSONE [Prednisone] 10 mg PO DAILY 11/01/18 [History] Tamsulosin HCl 0.4 mg PO DAILY 01/30/20 [History] Acetaminophen [Tylenol] 650 mg PO Q4H PRN tablet 02/19/20 [Rx] HYDROmorphone [Dilaudid] 2 mg PO Q4H PRN #42 tablet 02/19/20 [Rx] Loperamide HCl [Anti-Diarrheal] 1 mg PO Q6H PRN 30 Days liquid 02/19/20 [Rx] Nystatin [Mycostatin] 5 ml PO QID 30 Days cup 02/19/20 [Rx] Ondansetron [Zofran ODT] 4 mg PO Q4H PRN #30 tab.dis 02/19/20 [Rx] Past Medical History HEENT History: Reports: Impaired Vision Cardiovascular History: Reports: High Cholesterol, Other (See Below) Other Cardiovascular History: peripheral artery disease Respiratory History: Reports: COPD Gastrointestinal History: Reports: GERD Genitourinary History: Reports: Renal Calculus, UTI, 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: Musculoskeletal History: Reports: Arthritis, Fibromyalgia, Other (See Below) Other Musculoskeletal History: osteopenia Neurological History: Reports: Other (See Below) Other Neuro History: dementia Psychiatric History: Reports: Depression Oncologic (Cancer) History: Reports: Esophageal, Liver, Other (See Below) 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 - Infectious Disease History Infectious Disease History: Reports: Chicken Pox, Measles, Mumps - Past Surgical History HEENT Surgical History: Reports: Tonsillectomy Cardiovascular Surgical History: Reports: None GI Surgical History: Reports: None Female Surgical History: Reports: Lithotripsy/ESWL, Ureteral Stent Neurological Surgical History: Reports: None Musculoskeletal Surgical History: Reports: None Oncologic Surgical History: Reports: Other (See Below) Other Oncologic Surgeries/Procedures: Liver biopsy Social & Family History - Tobacco Use Tobacco Use Status *Q: Former Tobacco User Used Tobacco, but Quit: Yes Month/Year Tobacco Last Used: 01/2020 - Caffeine Use Caffeine Use: Reports: Coffee - Recreational Drug Use Recreational Drug Use: No ED ROS GENERAL - Review of Systems Review Of Systems: See Below Constitutional: Reports: Malaise, Decreased Appetite. Denies: Fever, Chills HEENT: Denies: Throat Pain Respiratory: Reports: Shortness of Breath, Cough, Sputum Cardiovascular: Denies: Chest Pain GI/Abdominal: Reports: Nausea. Denies: Abdominal Pain, Vomiting Skin: Reports: No Symptoms Neurological: Reports: Weakness. Denies: Headache Psychiatric: Reports: Depression ED EXAM, GENERAL - Physical Exam Exam: See Below Exam Limited By: No Limitations General Appearance: Alert, No Apparent Distress Eye Exam: Bilateral Eye: Normal Inspection Head: Atraumatic Respiratory/Chest: No Respiratory Distress, Decreased Breath Sounds (Some decreased breath sounds in the bases and rales are heard in the right base) Cardiovascular: Regular Rate, Rhythm. No: Extra Beats GI/Abdominal: Normal Bowel Sounds, Soft, Other (She has a G-tube in place, bowel sounds are active) Extremities: No Pedal Edema Neurological: Alert, Oriented Skin Exam: Warm, Dry Course - Vital Signs Last Recorded V/S: Last Vital Signs Temp 97 F 03/04/20 14:41 Pulse 84 03/04/20 14:41 Resp 20 03/04/20 14:41 BP 117/48 L 03/04/20 14:41 Pulse Ox 94 L 03/04/20 14:41 - Orders/Labs/Meds Labs: Laboratory Tests 03/04/20 03/04/20 Range/Units 15:03 15:03 WBC 2.8 L (4.5-11.0) K/uL RBC 3.53 (3.30-5.50) M/uL Hgb 9.4 L (12.0-15.0) g/dL Hct 30.8 L (36.0-48.0) % MCV 87 (80-98) fL MCH 27 (27-31) pg MCHC 31 L (32-36) % Plt Count 166 (150-400) K/uL Neut % (Auto) 74 H (36-66) % Lymph % (Auto) 16 L (24-44) % Rice % (Auto) 9 H (2-6) % Eos % (Auto) 0 L (2-4) % Baso % (Auto) 0 (0-1) % Sodium 131 L (140-148) mmol/L Potassium 3.4 L (3.6-5.2) mmol/L Chloride 97 L (100-108) mmol/L Carbon Dioxide 28 (21-32) mmol/L Anion Gap 9.4 (5.0-14.0) mmol/L BUN 11 (7-18) mg/dL Creatinine 0.7 (0.6-1.0) mg/dL Est Cr Clr Drug Dosing 67.34 mL/min Estimated GFR (MDRD) > 60 (>60) Glucose 95 (74-106) mg/dL Calcium 8.0 L (8.5-10.1) mg/dL Total Bilirubin 0.7 (0.2-1.0) mg/dL AST 52 H (15-37) U/L ALT 43 (12-78) U/L Alkaline Phosphatase 252 H (46-116) U/L Total Protein 6.3 L (6.4-8.2) g/dL Albumin 1.9 L (3.4-5.0) g/dL Globulin 4.4 H (2.3-3.5) g/dL Albumin/Globulin Ratio 0.4 L (1.2-2.2) - Re-Assessments/Exams Free Text/Narrative Re-Assessment/Exam: 03/04/20 15:47 2 view chest x-ray shows a very subtle infiltrate in the right base which may be atelectasis or scarring but in light of her sputum production and cough as well as her leukopenia due to chemotherapy a course of antibiotics is warranted. She will be placed on 300 mg of Zithromax daily for 5 consecutive days. She can continue her other medications as prescribed and recheck in 2 to 3 days if not improving. Departure - Departure Time of Disposition: 16:06 Disposition: Home, Self-Care 01 Clinical Impression: Drug-induced leukopenia Right lower lobe pneumonia Qualifiers: Pneumonia type: due to unspecified organism Qualified Code(s): J18.9 - Pneumonia, unspecified organism - Discharge Information Instructions: Shortness of Breath, Adult, [id number] Referrals: Tiffany Lu MD [Primary Care Provider] - Forms: ED Department Discharge Care Plan Goals: Continue your current medications adding 1 dose of Zithromax as prescribed starting this evening then each morning for 4 additional days. Increase activity as tolerated and return if worsening or concerns. Otherwise recheck next Wednesday as scheduled. Sepsis Event Note (ED) - Evaluation Sepsis Screening Result: No Definite Risk - Focused Exam Vital Signs: Vital Signs Temp Pulse Resp BP Pulse Ox 03/04/20 14:41 97 F 84 20 117/48 L 94 L
--- NOTE | 2020-03-04 15:55 | CR ---
CHEST: 2 view CLINICAL HISTORY:Dyspnea COMPARISON:None FINDINGS: There are diffuse bilateral dominantly interstitial infiltrates and ill-defined opacities. There are no pleural effusions. Patient has an [id number] catheter from left subclavian approach. The tip is in the superior vena cava brachiocephalic junction. IMPRESSION: Diffuse bilateral infiltrates suggest pneumonitis
== END 2020-03-04 16:05 | disposition home or self-care (01) ==
LOC: JP.ED 14:05
DX: J18.9 Pneumonia, unspecified organism (principal); D70.2 Other drug-induced agranulocytosis; T45.1X5A Adverse effect of antineoplastic and immunosuppressive drugs, initial encounter; C15.9 Malignant neoplasm of esophagus, unspecified; J44.9 Chronic obstructive pulmonary disease, unspecified; K21.9 Gastro-esophageal reflux disease without esophagitis; F32.9 Major depressive disorder, single episode, unspecified; Z87.891 Personal history of nicotine dependence; Z88.8 Allergy status to other drugs, medicaments and biological substances; Z79.02 Long term (current) use of antithrombotics/antiplatelets; Z79.899 Other long term (current) drug therapy
CPT/HCPCS: 36415; 71046; 71046-26; 80053; 85025; 99285-25

== ENCOUNTER 2020-03-19 13:41 | Emergency (ER) | payer MEDICARE ==
--- NOTE | 2020-03-19 14:42 | EDM.PDOC ---
ED HPI GENERAL MEDICAL PROBLEM - General Chief Complaint: Respiratory Problem Stated Complaint: SHORTNESS OF BREATH Time Seen by Provider: 03/19/20 14:19 Source of Information: Reports: Patient, Family, Old Records, Provider, RN Notes Reviewed History Limitations: Reports: No Limitations - History of Present Illness INITIAL COMMENTS - FREE TEXT/NARRATIVE: 69-year-old female presents emergency department with a complaint of shortness of breath, she was initially scheduled to receive her last round of chemotherapy for adenocarcinoma esophageal at the [facility] and was found to be hypoxic around 88%. She states she started feeling short of breath this morning was found to have an O2 saturation of 79% by physical therapy. She does not describe chest pain no nausea vomiting no pain with a deep breath. Did have blood work done at the clinic this morning CBC was unremarkable as well as a CMP comparison to prior blood work approximately a week ago does show improvement in her lab work chest x-ray describes a reticular pattern of unknown significance bases bilaterally - Related Data Allergies Allergy/AdvReac Type Severity Reaction Status Date / Time atorvastatin Allergy Rash Verified 03/04/20 14:29 cyclobenzaprine Allergy Other Verified 03/04/20 14:29 donepezil Allergy Other Verified 03/04/20 14:29 hydroxychloroquine Allergy Other Verified 03/04/20 14:29 [From Plaquenil] methotrexate AdvReac Leg Cramps Verified 03/04/20 14:29 Home Meds: Home Meds Clopidogrel [Plavix] 75 mg PO DAILY 11/01/18 [History] Omeprazole 40 mg PO BID 11/01/18 [History] Sertraline [Zoloft] 150 mg PO DAILY 11/01/18 [History] predniSONE [Prednisone] 10 mg PO DAILY 11/01/18 [History] Tamsulosin HCl 0.4 mg PO DAILY 01/30/20 [History] Acetaminophen [Tylenol] 650 mg PO Q4H PRN tablet 02/19/20 [Rx] HYDROmorphone [Dilaudid] 2 mg PO Q4H PRN #42 tablet 02/19/20 [Rx] Loperamide HCl [Anti-Diarrheal] 1 mg PO Q6H PRN 30 Days liquid 02/19/20 [Rx] Nystatin [Mycostatin] 5 ml PO QID 30 Days cup 02/19/20 [Rx] Ondansetron [Zofran ODT] 4 mg PO Q4H PRN #30 tab.dis 02/19/20 [Rx] Past Medical History HEENT History: Reports: Impaired Vision Cardiovascular History: Reports: High Cholesterol, Other (See Below) Other Cardiovascular History: peripheral artery disease Respiratory History: Reports: COPD Gastrointestinal History: Reports: GERD Genitourinary History: Reports: Renal Calculus, UTI, Recurrent 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: Musculoskeletal History: Reports: Arthritis, Fibromyalgia, Other (See Below) Other Musculoskeletal History: osteopenia Neurological History: Reports: Other (See Below) Other Neuro History: dementia Psychiatric History: Reports: Depression Oncologic (Cancer) History: Reports: Esophageal, Liver, Other (See Below) 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 - Infectious Disease History Infectious Disease History: Reports: Chicken Pox, Measles, Mumps - Past Surgical History HEENT Surgical History: Reports: Tonsillectomy Cardiovascular Surgical History: Reports: None GI Surgical History: Reports: None Female Surgical History: Reports: Lithotripsy/ESWL, Ureteral Stent Neurological Surgical History: Reports: None Musculoskeletal Surgical History: Reports: None Oncologic Surgical History: Reports: Other (See Below) Other Oncologic Surgeries/Procedures: Liver biopsy Social & Family History - Tobacco Use Tobacco Use Status *Q: Former Tobacco User Used Tobacco, but Quit: No - Caffeine Use Caffeine Use: Reports: None - Recreational Drug Use Recreational Drug Use: No ED ROS GENERAL - Review of Systems Review Of Systems: See Below Constitutional: Denies: Fever, Chills HEENT: Reports: No Symptoms Respiratory: Reports: Shortness of Breath Cardiovascular: Reports: Dyspnea on Exertion. Denies: Chest Pain GI/Abdominal: Reports: No Symptoms ED EXAM, GENERAL - Physical Exam Exam: See Below Exam Limited By: No Limitations General Appearance: Alert, No Apparent Distress Respiratory/Chest: No Accessory Muscle Use, Chest Non-Tender, Decreased Breath Sounds Cardiovascular: Regular Rate, Rhythm, No Murmur GI/Abdominal: Soft, Non-Tender Course - Vital Signs Last Recorded V/S: Last Vital Signs Temp 98.4 F 03/19/20 14:07 Pulse 84 03/19/20 17:01 Resp 18 03/19/20 14:07 BP 115/53 L 03/19/20 17:01 Pulse Ox 94 L 03/19/20 15:51 - Orders/Labs/Meds Orders: Active Orders 24 hr Category Date Time Status RT Aerosol Therapy [RC] ASDIRECTED Care 03/19/20 16:33 Active Iopamidol [Isovue-370 (76%)] Med 03/19/20 15:00 Active 100 ml IV . DIRECTED Sodium Chloride 0.9% [Normal Saline] 100 ml Med 03/19/20 15:00 Active IV ASDIRECTED Medication Orders Sodium Chloride (Normal Saline) 100 mls @ 3 mls/sec IV ASDIRECTED JELENA Last Admin: 03/19/20 15:46 Dose: 3 mls/sec Documented by: [email or web address] Iopamidol (Isovue-370 (76%)) 100 ml IV . DIRECTED JELENA Last Admin: 03/19/20 15:46 Dose: 100 ml Documented by: [place] Labs: Laboratory Tests 03/19/20 03/19/20 Range/Units 14:34 14:34 Troponin I < 0.017 (0.000-0.056) ng/mL NT-Pro-B Natriuret Pep 309 H (5-125) pg/mL Meds: Medications Generic Name Dose Route Start Last Admin Trade Name Freq PRN Reason Stop Dose Admin Sodium Chloride 100 mls @ 3 mls/sec 03/19/20 15:00 03/19/20 15:46 Normal Saline IV 3 mls/sec ASDIRECTED JELENA Administration Iopamidol 100 ml 03/19/20 15:00 03/19/20 15:46 Isovue-370 (76%) IV 100 ml . DIRECTED JELENA Administration Discontinued Medications Generic Name Dose Route Start Last Admin Trade Name Freq PRN Reason Stop Dose Admin Albuterol/Ipratropium 3 ml 03/19/20 16:33 03/19/20 16:38 Duoneb 3.0-0.5 Mg/3 Ml NEB 03/19/20 16:34 3 ml ONETIME ONE Administration Sodium Chloride 10 ml 03/19/20 14:48 03/19/20 15:46 Saline Flush FLUSH 03/19/20 14:49 10 ml ONETIME ONE Administration Departure - Departure Time of Disposition: 17:30 Disposition: Home, Self-Care 01 Condition: Poor Clinical Impression: Dyspnea Qualifiers: Dyspnea type: shortness of breath Qualified Code(s): R06.02 - Shortness of breath; R06.00 - Dyspnea, unspecified; R06.01 - Orthopnea Esophageal cancer Qualifiers: Malignant neoplasm of esophagus location: unspecified location Qualified Code(s): C15.9 - Malignant neoplasm of esophagus, unspecified - Discharge Information Instructions: Shortness of Breath, Adult, Abgi-of-Spiw Referrals: Tiffany Lu MD [Primary Care Provider] - Forms: ED Department Discharge Additional Instructions: Continue with your regular medications, please keep your follow-up appointments with your primary care and your oncologist, call or return to the emergency department worsening of symptoms Sepsis Event Note (ED) - Evaluation Sepsis Screening Result: No Definite Risk - Focused Exam Vital Signs: Vital Signs Temp Pulse Resp BP Pulse Ox 03/19/20 17:01 84 115/53 L 03/19/20 16:16 72 128/58 L 03/19/20 15:51 73 136/59 L 94 L 03/19/20 15:11 75 131/65 03/19/20 14:07 98.4 F 85 18 130/64 95 03/19/20 14:02 98.4 F 85 18 130/64 95 - My Orders Last 24 Hours: My Active Orders 03/19/20 15:00 Iopamidol [Isovue-370 (76%)] 100 ml IV . DIRECTED Sodium Chloride 0.9% [Normal Saline] 100 ml IV ASDIRECTED 03/19/20 16:33 RT Aerosol Therapy [RC] ASDIRECTED - Assessment/Plan Last 24 Hours: My Active Orders 03/19/20 15:00 Iopamidol [Isovue-370 (76%)] 100 ml IV . DIRECTED Sodium Chloride 0.9% [Normal Saline] 100 ml IV ASDIRECTED 03/19/20 16:33 RT Aerosol Therapy [RC] ASDIRECTED Plan: Assessment Acuity = acute Site and laterality = dyspnea complicating the patient with history adenocarcinoma esophageal with metastases Etiology = suspicion for progression of disease Manifestations = none Location of injury = Home Lab values = BNP slightly elevated 307 uncertain significance, troponin was negative CT scan angio of the chest reveals no pulmonary embolism increased opacities in the bases bilaterally of unclear significance Plan I did review lab work CT scan results with her and her family we did try DuoNeb treatment in the ED without much relief. She states she feels better she is not as short of breath as she was she would like to try going home return to the emergency department with worsening conditions and and follow-up with her oncologist This note was dictated using [employer] voice recognition software please call with any questions on syntax or grammar.
[2020-03-19] MEDS: Sodium Chloride 0.9% 10 ML Syringe FLUSH ONE ×2 (14:58→15:46)
[2020-03-19] MEDS ORDERED: Sodium Chloride 0.9% 100 ML IV SCH (15:00)
[2020-03-19] MEDS ORDERED: Iopamidol 755 Mg/ML 100 ML Bottle IV SCH (15:00)
--- NOTE | 2020-03-19 16:29 | CRLCT ---
INDICATION: SOB. Rule out pulmonary embolism. Esophageal cancer. TECHNIQUE: Volumetric helical scanning of the thorax was performed during infusion of 100 cc of Isovue 370 contrast material IV, timing optimized for pulmonary arterial opacification. Coronal and sagittal reconstructions were obtained. COMPARISON: None. FINDINGS: The images are of acceptable quality and demonstrate uniform vascular enhancement within the pulmonary arteries. No pulmonary arterial filling defect is identified. The heart size is normal. Calcified coronary arterial plaque is demonstrated. Patchy ground-glass/reticular opacities are present throughout both lungs. Opacity is greatest in the lung bases. No significant airway abnormality is evident. No pleural effusion is demonstrated. No mediastinal or hilar lymphadenopathy is demonstrated. Mild circumferential wall thickening of the distal esophagus is noted. A hiatal hernia of moderate size is demonstrated. Images of the upper abdomen demonstrate multiple liver metastases with the largest measuring on the order of 5 cm in diameter. IMPRESSION: 1. Negative for pulmonary embolism. 2. Patchy ground-glass/reticular opacities throughout both lungs, most significant in the lung bases. 3. Numerous hepatic metastases, the largest measuring on the order of 5 cm in diameter. 4. Mild circumferential wall thickening of the distal esophagus. 5. Hiatal hernia of moderate size. Please note that all CT scans at this facility use dose modulation, iterative reconstruction, and/or weight-based dosing when appropriate to reduce radiation dose to as low as reasonably achievable. Dictated by Stevo Barragan MD @ Mar 19 2020 4:17PM Signed by Dr. Stevo Barragan @ Mar 19 2020 4:26PM
[2020-03-19] MEDS ORDERED: Albuterol/Ipratropium 3.0-0.5 MG/3 ML Neb Soln NEB ONE (16:33)
== END 2020-03-19 17:41 | disposition home or self-care (01) ==
LOC: JP.ED 13:41
DX: C15.9 Malignant neoplasm of esophagus, unspecified (principal); R06.02 Shortness of breath; R79.89 Other specified abnormal findings of blood chemistry; K21.9 Gastro-esophageal reflux disease without esophagitis; J44.9 Chronic obstructive pulmonary disease, unspecified; F32.9 Major depressive disorder, single episode, unspecified; Z90.49 Acquired absence of other specified parts of digestive tract; Z87.891 Personal history of nicotine dependence; Z88.8 Allergy status to other drugs, medicaments and biological substances; Z79.02 Long term (current) use of antithrombotics/antiplatelets; Z79.899 Other long term (current) drug therapy
CPT/HCPCS: 36415; 71275; 83880; 84484; 94640; 99285; Q9967; J7620-GY